=== PATIENT | female | born 1980 | race Caucasian/White ===

== ENCOUNTER 2019-07-03 05:59 | Day surgery (SDC) | payer MEDICAID ==
--- NOTE | 2019-07-01 10:00 | NUR ---
COPY OF PREOP TESTING LAB RESULTS AND CXR REVIEWED WITH DR BRADLEY, ANESTHESIOLOGIST. NO NEW ORDERS. ALSO FAXED RESULTS TO DR MCGOWAN OFFICE. SPOKE WITH GRISELDA IN OFFICE. FAX RECEIVED. WILL REVIEW WITH DOCTOR AND RETURN CALL WITH ANY NEW ORDERS.
[2019-07-02 08:32] LABS: PLATELET COUNT 342 x10^3mcL (130-400)
[2019-07-02 08:34] LABS: RED CELL DISTRIBUTION WIDTH 16.9 % (11.5-14.5); rbc morphology (normal/abnorm) ABNORMAL (NORMAL)
[2019-07-02 08:42] LABS: ALBUMIN 3.4 g/dL (3.4-5.0); ALKALINE PHOSPHATASE 94 U/L (46-116); ALT/SGPT 21 U/L (14-59); AST/SGOT 15 U/L (15-37); BILIRUBIN TOTAL 0.2 mg/dL (0.20-1.00); CALCIUM 8.8 mg/dL (8.5-10.1); CARBON DIOXIDE 24.4 mmol/L (21-32); CHLORIDE SERUM 104 mmol/L (98-107); CREATININE SERUM 0.7 mg/dL (0.6-1.0); GFR1 > 60 mL/min; GLUCOSE SERUM 97 mg/dL (74-106); POTASSIUM SERUM 3.9 mmol/L (3.5-5.1); SODIUM SERUM 139 mmol/L (136-145); TOTAL PROTEIN, SERUM 7.9 g/dL (6.4-8.2)
--- NOTE | 2019-07-02 09:05 | NUR ---
PT CAME INTO LAB THIS AM FOR REDRAW CBC, CMP. RESULTS NOTED hB=8.6, HCT=27. RESULTS CALLED TO DR MCGOWAN OFFICE, SPOKE WITH CHAU THEY WERE RECEIVED. SHE WILL REVIEW WITH MD AND CALL FOR ANY FURTHER ORDERS. TYPE AND SCREEN WAS NOT DRAWN THIS AM. CALL TO PT. SHE WILL RETURN FOR TYPE AND SCREEN TO BE DRAWN.
[~2019-07-03] VITALS: Ht 167.6 cm; Wt 92.1 kg
[2019-07-03 06:26] VITALS: BP 126/70
[2019-07-03 12:34] VITALS: BP 106/70
== END 2019-07-03 12:15 | disposition home or self-care (01) ==
LOC: DS 05:59 → EDSTATUS 07:30 → DS 12:15
PROVIDERS: Obstetrics & Gynecology
DX: N83.201 Unspecified ovarian cyst, right side (principal); N83.511 Torsion of right ovary and ovarian pedicle
CPT/HCPCS: J3010; J3490; U0003-CS